=== PATIENT | female | born 1955 | race Asian ===

== ENCOUNTER 2018-02-21 08:53 | Emergency (ER) | payer OTHER ==
[~2018-02-21] VITALS: Ht 157.5 cm; Wt 55.0 kg
[2018-02-21 09:52] LABS: HEMATOCRIT 37.1 % (36.0-46.0); HEMOGLOBIN 12.5 G/DL (11.9-15.5); MCH 30.3 PG (29.0-34.0); MCHC 33.7 G/DL (30.0-36.0); PLATELET COUNT 262 K/uL (156-360); RBC DIS.WIDTH-CV 12.8 % (11.8-14.6); RBC DIS.WIDTH-SD 42.1 % (39-53); RED BLOOD COUNT 4.12 M/uL (3.80-5.20)
[2018-02-21 10:00] LABS: ALBUMIN 4.5 g/dL (3.2-4.8)
[2018-02-21 10:01] LABS: CHLORIDE 108 mEq/L (99-109); POTASSIUM 4.1 mEq/L (3.7-5.4); SODIUM 141 mEq/L (136-147)
[2018-02-21 10:03] LABS: GLUCOSE 137 mg/dL (70-99); TOTAL PROTEIN 7.3 g/dL (6.4-8.3)
[2018-02-21 10:05] LABS: TOTAL BILIRUBIN 0.2 mg/dL (0.0-1.0)
[2018-02-21 10:06] LABS: ALKALINE PHOSPHATASE 61 IU/L (3-129)
[2018-02-21 10:07] LABS: CREATININE 0.9 mg/dL (0.6-1.3)
[2018-02-21 10:08] LABS: AST (GOT) 24 IU/L (2-34); UREA NITROGEN (BUN) 14 mg/dL (9-23)
[2018-02-21 10:09] LABS: ALT (GPT) 14 IU/L (3-49); GFR ESTIMATE (CALCULATED) > 59 mL/min/
[2018-02-21 10:10] LABS: LIPASE 29 U/L (1.0-51.0)
[2018-02-21] MEDS ORDERED: ZOFRAN4 MG PO (12:23)
[2018-02-21] MEDS ORDERED: FLAGYL500 MG PO (12:25)
[2018-02-21] MEDS ORDERED: LEVAQUIN750 MG PO (12:25)
[2018-02-21 13:55] VITALS: BP 178/96
== END 2018-02-21 13:59 | disposition home or self-care (01) ==
LOC: EME 08:53
PROVIDERS: Emergency Medicine
DX: K52.9 Noninfective gastroenteritis and colitis, unspecified (principal); E11.9 Type 2 diabetes mellitus without complications; I10 Essential (primary) hypertension; E78.5 Hyperlipidemia, unspecified; Z87.891 Personal history of nicotine dependence
CPT/HCPCS: 74177; 80053; 83690; 85027; 93005; 99281; 99284; J2405; J7030